=== PATIENT | female | born 1950 | race American Indian/Alaskan Native ===

== ENCOUNTER 2018-05-28 10:15 | Emergency (ER) | payer MEDICARE ==
--- NOTE | 2018-05-28 11:07 | Emergency Department Report ---
Blank Doc - Documentation Documentation: This is a 67-year-old female that presents with dizziness and syncopal episode today. Denies any headache. No facial drooping. No one sided weakness. This initial assessment diagnostic orders/clinical plan/treatment(s) is/are subject to change based on patient's health status, clinical progression and re- assessment by fellow clinical providers in the ED. Further treatment and workup at subsequent clinical providers discretion. Patient/guardians urged not to elope from ED s their condition may be serious if not clinically assessed and managed. Initial orders include: 1-Patient sent to MAIN for further evaluation and treatment 2- Labs 3- EKG 4- CT head 5- UA
[2018-05-28 11:11] VITALS: BP 186/90
[2018-05-28 11:57] LABS: Basophils # (Auto) 0.1 K/mm3 (0.0-0.1); Basophils % (Auto) 1.3 % (0.0-1.8); Eosinophils # (Auto) 0.1 K/mm3 (0.0-0.4); Eosinophils % (Auto) 2.7 % (0.0-4.3); Hematocrit 45.8 % (30.3-42.9); Hemoglobin 15.4 gm/dl (10.1-14.3); Lymphocytes # (Auto) 1.5 K/mm3 (1.2-5.4); Lymphocytes % (Auto) 32.9 % (13.4-35.0); Mean Corpuscular HGB Conc 34 % (30-34); Mean Corpuscular Volume 95 fl (79-97); Monocytes # (Auto) 0.6 K/mm3 (0.0-0.8); Monocytes % (Auto) 12.5 % (0.0-7.3); Platelet Count 302 K/mm3 (140-440); Red Blood Count 4.84 M/mm3 (3.65-5.03); Red Cell Distribution Width 14.2 % (13.2-15.2)
[2018-05-28 12:07] LABS: INR 0.87 (0.87-1.13)
[2018-05-28 12:08] LABS: Alanine Aminotransferase 17 units/L (7-56); Albumin 4.2 g/dL (3.9-5); BUN/Creatinine Ratio 13; Blood Urea Nitrogen 9 mg/dL (7-17); Hemolysis Index 24
--- NOTE | 2018-05-28 12:16 | Cat Scan Report ---
FINAL REPORT EXAM: CT HEAD/BRAIN WO CON HISTORY: Syncope TECHNIQUE: CT of the head was performed without intravenous contrast. PRIORS: None. FINDINGS: The ventricles are normal in shape and position. The ventricles are nondilated. No intracranial hemo rrhage, mass, mass effect, midline shift or evidence of acute ischemic infarct. The basilar cisterns are patent. There is mild diffuse cerebral volume loss. The paranasal sinuses are clear. The extracranial soft tissues demonstrate no abnormality. The calvar ium is intact. The orbits are intact. The mastoid air cells are clear. IMPRESSION: No acute intracranial abnormality.
--- NOTE | 2018-05-28 18:06 | Emergency Department Report ---
- General Chief complaint: Syncope Stated complaint: SYCOPAL EPISODE Time Seen by Provider: 05/28/18 11:06 Source: patient Mode of arrival: Wheelchair Limitations: No Limitations - History of Present Illness Initial comments: Patient is a very pleasant 67-year-old -[place] female who comes to the ER today complaining of a spell this morning that she described as: She was sitting on her recliner and she stood up the next thing she knew she was back in the recliner and her was standing there. She was not incontinent. There was no tonoclonic activity. She is no seizure disorder. She had felt fine up until and after the event. This episode was at least 6 hours prior to even coming to the emergency room. Currently in the ER she has no symptoms. She has no shortness of breath or chest pain. She reports being on blood pressure medicines that include met oprolol 50 mg twice a day and Norvasc 10 mg once a day. She reports having a stress test last year that was normal. We have no prior records of seeing the patient here. However, she is followed by a local primary care doctor. -: Sudden, hour(s) Severity scale (0 -10): 0 Consistency: intermittent Associated Symptoms: denies other symptoms - Related Data Allergies Allergy/AdvReac Type Severity Reaction Status Date / Time acetaminophen Allergy Itching Verified 05/28/18 10:34 [From Darvocet-N] codeine Allergy Hives Verified 05/28/18 10:34 erythromycin base Allergy Nausea Verified 05/28/18 10:34 haloperidol [From Haldol] Allergy Swelling Verified 05/28/18 10:34 propoxyphene Allergy Itching Verified 05/28/18 10:34 [From Darvocet-N] ED Review of Systems ROS: Stated complaint: SYCOPAL EPISODE Other details as noted in HPI Comment: All other systems reviewed and negative Constitutional: denies: chills Eyes: denies: eye pain ENT: denies: throat pain Respiratory: denies: cough Cardiovascular: denies: chest pain, palpitations, dyspnea on exertion, orthopnea, edema, syncope, paroxysmal nocturnal dyspnea Endocrine: denies: see HPI, excessive sweating, flushing, intolerance to cold, intolerance to heat, increased hunger, increased thirst Gastrointestinal: denies: nausea Genitourinary: denies: urgency Musculoskeletal: denies: back pain Neurological: as per HPI, other. denies: headache, weakness, numbness, paresthesias, confusion, abnormal gait, vertigo Psychiatric: denies: anxiety Hematological/Lymphatic: denies: easy bleeding ED Past Medical Hx - Past Medical History Previous Medical History?: Yes Hx Hypertension: Yes Hx COPD: Yes Additional medical history: hernia; stress test 2018 normal - Surgical History Past Surgical History?: Yes Hx Breast Surgery: Yes (knots removed) Additional Surgical History: hysterectomy. tonsillectomy - Social History Smoking Status: Never Smoker Substance Use Type: Alcohol ED Physical Exam - General Limitations: No Limitations General appearance: alert, in no apparent distress - Head Head exam: Present: atraumatic, normocephalic - Eye Eye exam: Present: normal appearance, PERRL, EOMI - ENT ENT exam: Present: mucous membranes moist - Neck Neck exam: Present: normal inspection - Respiratory Respiratory exam: Present: normal lung sounds bilaterally - Cardiovascular Cardiovascular Exam: Present: regular rate - GI/Abdominal GI/Abdominal exam: Present: soft, normal bowel sounds - Rectal Rectal exam: Present: deferred - Extremities Exam Extremities exam: Present: normal inspection, full ROM, normal capillary refill - Back Exam Back exam: Present: normal inspection, full ROM - Neurological Exam Neurological exam: Present: alert, oriented X3, CN II-XII intact, normal gait - Psychiatric Psychiatric exam: Present: normal affect, normal mood - Skin Skin exam: Present: warm, dry, intact - Assessment Assessment Interval: Baseline - Level of Consciousness 1a. Level of Consciousness: alert/keenly responsive - LOC Questions 1b. LOC Questions: answers both correctly - LOC Command 1c. LOC Commands: performs tasks correctly - Best Gaze 2. Best Gaze: normal - Visual 3. Visual: no visual loss - Facial Palsy 4. Facial Palsy: normal symmetrical movement - Motor Arm 5b. Motor Arm Right: no drift 5a. Motor Arm Left: no drift - Motor Leg 6b. Motor Leg Right: no drift 6a. Motor Leg Left: no drift - Limb Ataxia 7. Limb Ataxia: absent - Sensory 8. Sensory: normal - Best Language 9. Best Language: no aphasia - Dysarthria 10. Dysarthria: normal - Extinction and Inattention 11. Extinction/Inattention: no abnormality - Scoring Total Score: 0 Stroke Severity: No Stroke Symptoms ED Course Vital Signs 05/28/18 11:05 Temperature 98.1 F Pulse Rate 68 Respiratory 18 Rate Blood Pressure 186/90 O2 Sat by Pulse 99 Oximetry ED Medical Decision Making - Lab Data Result diagrams: 05/28/18 11:28 05/28/18 11:28 - EKG Data -: EKG Interpreted by Me EKG shows normal: sinus rhythm Rate: normal, bradycardia - EKG Data Interpretation: no acute changes, nonspecific ST-T wave khoi - Radiology Data Radiology results: report reviewed, image reviewed ct head nap - Medical Decision Making CT of the head negative for acute event 2 -12-lead EKGs were completed while the patient was here. First twelve-lead revealed a sinus rhythm with a rate of 59. The second one showed a sinus rhythm rate in the 70s. Patient does have nonspecific ST-T wave changes that were the same on both 12 leads. Troponin was negative. The patient had a normal stress test less than one year ago. Labs noted as below In med reconciliation with the patient it was noted that she is on 50 mg of metoprolol twice a day. I suspect that perhaps this is quite a high dose given the patient's heart rate this afternoon when she came in. I discussed with the patient metoprolol being a beta magnus and slowing of the heart rhythm that could cause symptoms similar to what she described. I have instructed her to take 25 mg twice a day to call her primary care doctor in the morning and follow-up with him tomorrow or Friday to discuss further. The patient may neo efit from a Holter monitor or event monitor. Patient was reexamined numerous times in the emergency room. She had no chest pain no shortness of breath. She is neurologically intact on all fists. She is ambulatory. She is taking by mouth. She is conversing with her family. She is discharged to home with her family. She is reliable for follow-up. Family has instructions on when to bring her back. Labs 05/28/18 05/28/18 05/28/18 11:14 11:28 11:28 WBC 4.6 RBC 4.84 Hgb 15.4 H Hct 45.8 H MCV 95 MCH 32 MCHC 34 RDW 14.2 Plt Count 302 Lymph % (Auto) 32.9 Levy % (Auto) 12.5 H Eos % (Auto) 2.7 Baso % (Auto) 1.3 Lymph # 1.5 Levy # 0.6 Eos # 0.1 Baso # 0.1 Seg Neutrophils % 50.6 Seg Neutrophils # 2.3 PT INR Sodium 140 Potassium 4.6 Chloride 102.1 Carbon Dioxide 26 Anion Gap 17 BUN 9 Creatinine 0.7 Estimated GFR > 60 BUN/Creatinine Ratio 13 Glucose 103 H POC Glucose 84 Calcium 10.0 Total Bilirubin 0.40 AST 24 ALT 17 Alkaline Phosphatase 79 Troponin T < 0.010 Total Protein 7.4 Albumin 4.2 Albumin/Globulin Ratio 1.3 Urine Color Urine Turbidity Urine pH Ur Specific Edison Urine Protein Urine Glucose (UA) Urine Ketones Urine Blood Urine Nitrite Urine Bilirubin Urine Urobilinogen Ur Leukocyte Esterase Urine WBC (Auto) Urine RBC (Auto) U Epithel Cells (Auto) Uric Acid Crystals Urine Mucus 05/28/18 05/28/18 11:28 17:20 WBC RBC Hgb Hct MCV MCH MCHC RDW Plt Count Lymph % (Auto) Levy % (Auto) Eos % (Auto) Baso % (Auto) Lymph # Levy # Eos # Baso # Seg Neutrophils % Seg Neutrophils # PT 12.4 INR 0.87 Sodium Potassium Chloride Carbon Dioxide Anion Gap BUN Creatinine Estimated GFR BUN/Creatinine Ratio Glucose POC Glucose Calcium Total Bilirubin AST ALT Alkaline Phosphatase Troponin T Total Protein Albumin Albumin/Globulin Ratio Urine Color Yellow Urine Turbidity Slightly-cloudy Urine pH 5.0 Ur Specific Edison 1.026 Urine Protein <15 mg/dl Urine Glucose (UA) Neg Urine Ketones Neg Urine Blood Sm Urine Nitrite Neg Urine Bilirubin Neg Urine Urobilinogen < 2.0 Ur Leukocyte Esterase Sm Urine WBC (Auto) 8.0 H Urine RBC (Auto) 12.0 U Epithel Cells (Auto) 1.0 Uric Acid Crystals 3+ Urine Mucus 3+ - Differential Diagnosis ro cva; ro acs; ro arrhythmia Critical care attestation.: If time is entered above; I have spent that time in minutes in the direct care of this critically ill patient, excluding procedure time. ED Disposition Clinical Impression: Dizziness, Bradycardia Disposition: - TO HOME OR SELFCARE Is pt being admited?: No Does the pt Need Aspirin: No Condition: Stable Additional Instructions: CALL PCP IN AM AND MAKE APPOINTMENT FOR FRIDAY TELL HIM WHY YOU WERE HERE AND WE BELIEVE ITS YOUR METOPROLOL/LOPRESSOR DOSAGE THIS CAUSES YOUR HR TO BE LOW TAKE 1/2 OF THE METOPROLOL PILL IN THE AM AND AT NIGHT UNTIL SEEN BY PCP YOUR STRESS TEST OF HEART <1 Y AGO WAS NORMAL TROPONIN NORMAL TODAY CT OF HEAD NORMAL TODAY THE PCP MAY NEED TO SEND YOU TO HEART DOCTOR FOR A MONITOR TO MONITOR YOUR HEART RATE WHILE YOU ARE AT HOME. Referrals: HAILY CHRISTIANSON MD [Primary Care Provider] - 3-5 Days Time of Disposition: 18:20
[2018-05-28 20:01] LABS: Bilirubin,Urine NEG (Negative); Blood,Urine SM (Negative); Color,Urine Yellow (Yellow); Mucus,Urine 3+ /HPF; Protein,Urine <15 mg/dL mg/dL (Negative); Urobilinogen,Urine < 2.0 mg/dL (<2.0)
== END 2018-05-28 18:40 | disposition home or self-care (01) ==
LOC: ED 10:15
DX: R42 Dizziness and giddiness (principal); R00.1 Bradycardia, unspecified; I10 Essential (primary) hypertension; J44.9 Chronic obstructive pulmonary disease, unspecified; Z88.5 Allergy status to narcotic agent; Z88.1 Allergy status to other antibiotic agents; Z88.8 Allergy status to other drugs, medicaments and biological substances; Z90.89 Acquired absence of other organs; Z90.710 Acquired absence of both cervix and uterus
CPT/HCPCS: 36415; 70450; 80053; 81001; 82962; 84484; 85025; 85610; 93005; 93010; 99284